=== PATIENT | male | born 1965 | race Caucasian/White ===

== ENCOUNTER → 2016-08-08 | Outpatient (CLI) | payer OTHER ==
[~2016-08-08] VITALS: Ht 177.8 cm; Wt 87.5 kg
[~2016-08-08] MED LIST: ATORVASTATIN CA10 MG PO; CRANBERRY450 M1 PO; FISH OIL 1,0001 EAC7 PO; FLONASE16 G1 BOTH NARES; MULTI VITAMIN1 EACH PO; TAMSULOSIN HCL0.4 MG PO; VYVANSE30 MG PO
== END | disposition home or self-care (01) ==
LOC: AMB 08:14
PROC: 0DBE8ZZ Excision of Large Intestine, Via Natural or Artificial Opening Endoscopic (ICD-10-PCS; principal; 2016-08-08)
DX: Z12.11 Encounter for screening for malignant neoplasm of colon (principal); K57.90 Diverticulosis of intestine, part unspecified, without perforation or abscess without bleeding; D12.5 Benign neoplasm of sigmoid colon; K64.9 Unspecified hemorrhoids; Z87.891 Personal history of nicotine dependence
CPT/HCPCS: 88305; B4087; J2250; J3010

== ENCOUNTER 2017-05-12 22:45 | Emergency (ER) | payer OTHER ==
[~2017-05-12] VITALS: Ht 177.8 cm; Wt 90.9 kg
[2017-05-12 23:13] LABS: ADD MIUA? YES; BILIRUBIN NEGATIVE; BLOOD MODERATE; COLOR YELLOW ((YELLOW)); GLUCOSE (STRIP) NEGATIVE; KETONES 80; LEUKOCYTES NEGATIVE; NITRITE NEGATIVE; PROTEIN (STRIP) 30; SPECIFIC GRAVITY 1.024 (1.000-1.030); UROBILINOGEN 0.2 MG/DL (0.2-1.0)
[2017-05-12 23:16] LABS: BACTERIA NONE SEEN /HPF; EPITHELIAL CELLS RARE /HPF; MUCUS TRACE /LPF; RED BLOOD CELLS TNTC /HPF (0-5); UCUL ADDED? YES; WHITE BLOOD CELLS 0-5 /HPF (0-5)
[2017-05-12 23:33] LABS: HEMATOCRIT 46.1 % (38.0-50.0); MCH 29.1 PG (29.0-34.0); MCV 88.3 FL (86-99); MEAN PLAT.VOLUME 9.7 uM^3 (9.0-12.4); PLATELET COUNT 225 K/uL (156-360); RBC DIS.WIDTH-CV 12.5 % (11.8-14.6); RBC DIS.WIDTH-SD 40.1 % (39-53); RED BLOOD COUNT 5.22 M/uL (4.00-5.50); WHITE BLOOD COUNT 9.5 K/uL (4.1-10.2)
[2017-05-12 23:41] LABS: CHLORIDE 103 mEq/L (99-109); POTASSIUM 4.1 mEq/L (3.7-5.4); SODIUM 142 mEq/L (136-147)
[2017-05-12 23:43] LABS: GLUCOSE 142 mg/dL (70-99)
[2017-05-12 23:45] LABS: ANION GAP 14 MEQ/L (2-14)
[2017-05-12 23:47] LABS: GFR ESTIMATE (CALCULATED) > 59 mL/min/
[2017-05-12 23:48] LABS: UREA NITROGEN (BUN) 17 mg/dL (9-23)
[2017-05-13] MEDS ORDERED: FLOMAX0.4 MG PO (01:42)
[2017-05-13] MEDS ORDERED: ZOFRAN4 MG PO (01:42)
[2017-05-13] MEDS ORDERED: NORCO 5/3251 TABLET PO (01:42)
[2017-05-13 02:35] VITALS: BP 139/75
== END 2017-05-13 02:44 | disposition home or self-care (01) ==
LOC: EME 22:45
DX: N13.2 Hydronephrosis with renal and ureteral calculous obstruction (principal); R31.9 Hematuria, unspecified; E78.5 Hyperlipidemia, unspecified; F90.9 Attention-deficit hyperactivity disorder, unspecified type; Z87.891 Personal history of nicotine dependence
CPT/HCPCS: 74176; 80048; 81003; 85027; 87086; 99281; 99284; J1885; J7030